=== PATIENT | female | born 1970 | race Caucasian/White ===

== ENCOUNTER 2019-02-23 06:08 | Day surgery (SDC) | payer OTHER ==
[2019-02-22 15:11] LABS: Absolute Lymphocytes (CBC) 0.7 K/uL (0.7-4.9); Absolute Monocytes 0.3 K/uL (0.1-1.3); Absolute Neutrophil 4.7 K/uL (1.8-8.0); Basophils % 0.2 % (0-1.3); Eosinophils % 0.3 % (0-4.4); Hematocrit 34.6 % (36.0-45.0); Lymphocytes % 12.5 % (15.3-44.8); MPV 7.2 fL (7.6-11.3); Monocytes % 5.9 % (3.3-12.3); RBC Red Blood Cell Count 2.66 M/uL (3.86-4.86)
[2019-02-22 15:26] LABS: BUN Blood Urea Nitrogen 15 mg/dL (7-18); Bicarbonate 29 mmol/L (21-32); Glucose Level 92 mg/dL (74-106); Potassium 4.1 mmol/L (3.5-5.1); Sodium Level 139 mmol/L (136-145)
--- NOTE | 2019-02-22 15:30 | RAD REPORT ---
EXAM DESCRIPTION: RAD - Chest Pa And Lat (2 Views) - 02/22/2019 3:04 pm CLINICAL HISTORY: Preop chest, pending wound debridement COMPARISON: October 2017 TECHNIQUE: PA and lateral views of the chest were obtained. FINDINGS: The lungs are clear of focal lung parenchymal process. Interstitial markings are mildly pr ominent but not clearly different. Heart size is normal and central vasculature is within normal li mits. No pleural effusion or pneumothorax seen. No acute bony finding noted. No aortic abnormality . IMPRESSION: No acute cardiopulmonary process. No significant change from comparison.
[2019-02-22 18:38] LABS: Blood Morphology Comment NOTED (NOT SEEN); Macrocytosis 3+; Platelet Estimate INCR; Polychromasia 1+; Urine White Blood Cell Casts OK
[2019-02-23] MEDS ORDERED: CEFAZOLIN/SWI 1gm 1 GM/10 ML SYR ONE (06:31)
[2019-02-23] MEDS ORDERED: Ringers Lactate 1,000 ML IV ONE (06:31)
[2019-02-23 06:46] LABS: Specific Gravity 1.025 (1.005-1.030)
[2019-02-23] MEDS ORDERED: BUPIVACAINE 0.5% PF 10 ML VIAL ONE (07:10)
[2019-02-23] MEDS ORDERED: MIDAZOLAM HCL 2 MG/2 ML INJ ONE (07:25)
[2019-02-23] MEDS ORDERED: FENTANYL CITR 100 MCG/2 ML ONE (07:25)
[2019-02-23] MEDS ORDERED: PROPOFOL 200 MG/20 ML VIAL IV ONE (07:25)
[2019-02-23] MEDS ORDERED: LIDOCAINE 1% MPF 5 ML VIAL ONE (07:26)
[2019-02-23] MEDS ORDERED: DEXAMETHASONE 10 MG/ML VIAL ONE (07:48)
[2019-02-23] MEDS ORDERED: DEXAMETHASONE 4 MG/ML VIAL ONE (07:55)
[2019-02-23] MEDS ORDERED: KETOROLAC 30 MG/ML INJ ONE (08:02)
[2019-02-23] MEDS ORDERED: ONDANSETRON 4 MG/2 ML VIAL ONE (08:02)
[2019-02-23] MEDS ORDERED: COLLAGENASE 30 GM OINTMENT TOP ONE (08:19)
[2019-02-23 09:10] VITALS: BP 126/78; TEMP 98.5; O2SAT 96
--- NOTE | 2019-02-23 18:48 | OP ---
Date of Procedure: 02/23/2019 Surgeon: Fuentes Marsh MD Preoperative Diagnosis: Nonhealing wound, left leg x2. Postoperative Diagnosis: Nonhealing wound, left leg x2. Procedure: Debridement left leg wound down through the subcutaneous tissue and muscle with biopsy x1 . Estimated Blood Loss: Minimal. Specimen: Wound biopsy and culture and sensitivity. Findings: The top wound which was thought to be a wound was cleaned under general anesthesia and fou nd to have healed. There was just a scab that looked like a wound, and the bottom wound had moderate amount of fibrin in it, and on this a deep biopsy and debridement were done. Anesthesia: General. Complications: None. Disposition: The patient tolerated the procedure in stable condition and was sent to Recovery in goo d general condition. Procedure In Detail: The patient was brought to the OR and placed in supine position. General anest hesia begun. The patient was prepped and draped in sterile fashion. Marcaine 0.5% was infiltrated l ocally. Then, the top wound was scrubbed further with a curette and a layer of scab came off, underl pramod dermis and epidermis were completely intact consistent with complete healing of the wound. The inferior wound was 4 x 2 cm with moderate amount of fibrin, which was debrided with a curette and Iri s scissors down through the subcutaneous tissue and muscle layer. Cultures and biopsies were done. Wound was irrigated. Bleeding controlled with cautery and then collagenase dressing was applied. The patient was awakened and taken to Recovery in good general condition. ANNMARIE/LINDA Voice ID: [id number] Report ID: [id number]
--- NOTE | 2019-02-23 19:18 | DS ---
Date of Discharge: 02/23/2019 Discharge Note: The patient will go to Day Surgery and home when stable. Disposition: Home. Condition: Stable. Discharge Instructions: Resume home medications and diet. Activity as tolerated. dressi ngs as instructed. Tylenol No. 3 one tablet p.o. q.4 p.r.n. pain. Follow up with Dr. Sascha gannon in his clinic. ANNMARIE/LINDA Voice ID: [id number] Report ID: [id number]
--- NOTE | 2019-02-27 11:25 | EKG ---
Test Date: 2019-02-22 Test Time: 14:45:53 [employer]: COLIN MEASUREMENT RESULTS: Intervals: Rate: 75 VT: 150 QRSD: 80 QT: 384 QTc: 428 [place]: P: 67 VT: 150 QRS: 60 T: 72 INTERPRETIVE STATEMENTS: Normal sinus rhythm with sinus arrhythmia Normal ECG Compared to ECG 10/25/2017 09:22:51 Myocardial infarct finding no longer present Electronically Signed On 02-23-19 09:52:36 CDT by Iván Hoover
== END 2019-02-23 09:10 | disposition home or self-care (01) ==
LOC: OR 06:08
PROVIDERS: ATTEND Surgery
PROC: 0KBT0ZX Excision of Left Lower Leg Muscle, Open Approach, Diagnostic (ICD-10-PCS; 2019-02-23)
PROC: 0KDT0ZZ Extraction of Left Lower Leg Muscle, Open Approach (ICD-10-PCS; principal; 2019-02-23 07:30)
DX: S81.802A Unspecified open wound, left lower leg, initial encounter (principal); D69.3 Immune thrombocytopenic purpura; I10 Essential (primary) hypertension; E03.9 Hypothyroidism, unspecified; E66.9 Obesity, unspecified; Z68.33 Body mass index [BMI] 33.0-33.9, adult
CPT/HCPCS: 36415; 71046; 80048; 81025; 85025; 87070; 87077; 87186; 87205; 88304; 88305; 93005; J0690; J1100; J2250; J2405; J2704; J3010; J3590